=== PATIENT | male | born 1970 | race Hispanic/Latino ===

== ENCOUNTER 2023-06-03 04:54 | Emergency (ER) | payer SELFPAY ==
[2023-06-03] VITALS (8 sets, daily range): BP systolic 136–178; BP diastolic 85–94; PULSE 76–91; RESP 15–16; TEMP 36.8; O2SAT 96–100
--- NOTE | ~2023-06-03 | CT_ITS ---
Non-contrast CT scan of the Abdomen and Pelvis Clinical indication: Left back pain Technique: 2.5 mm axial scans were obtained through the abdomen and pelvis without intravenous or or al contrast. Dose reduction technique was used on this scan by utilizing automated exposure control a nd iterative reconstruction technique. The dose-length product (DLP) was 576.18 mGy-cm. Findings: Images through the lung bases reveal no abnormalities. There is no evidence of renal or ureteral calculi. The kidneys and the ureters are nondilated. There is diffuse fatty infiltration of the liver. The spleen, pancreas, gallbladder, and adrenals geovanna ear normal. There is no aortic aneurysm. There is no evidence of bowel obstruction. Images through the pelvis were performed. There is no evidence of ascites or lymphadenopathy. Urinary bladder unremarkable. No pelvic mass seen. Impression: No acute abnormality. Diffuse fatty infiltration of liver. Reviewed, dictated and finalized at [facility]. [employer] Impression: No acute abnormality. Diffuse fatty infiltration of liver.
[2023-06-03 05:56] LABS: Appearance Urine Clear (Clear); Bacteria Urine None Seen /hpf; Bilirubin Urine Negative (Negative); Blood Urine 2+ (Negative); Color Urine Yellow (Yellow); Glucose Urine UA Negative (Negative); Ketones Urine Negative (Negative); Leukocyte Esterase Ur Negative LEU/UL (Negative); Nitrate Urine Negative (Negative); Non Pathogenic Casts 0-2; Protein Urine Negative (Negative); RBC Urine 21-50 /hpf (0-2); Squamous Epithelial Cell Urine None seen /hpf (Few); Urobilinogen Urine 0.2 mg/dL (<2.0); WBC Urine 0-5 /hpf; pH Urine 6.5 (5.0-9.0)
[2023-06-03 06:21] LABS: Add Urine Microscopic? YES
[2023-06-03 07:03] LABS: Basophils Absolute Auto 0.1 K/mm3 (0.0-0.1); Basophils Percent Auto 0.7 % (0.2-1.2); Eosinophils Absolute Auto 0.2 K/mm3 (0-0.3); Eosinophils Percent Auto 3.1 % (0-4.4); Hematocrit 46.8 % (42.0-52.0); Hemoglobin 16.2 g/dL (14.0-18.0); Immature Granulocyte Absolute 0.03 K/mm3 (0.00-0.031); Immature Granulocyte Percent A 0.4 % (0-0.5); Lymphocytes Absolute Auto 1.68 K/mm3 (0.9-3.2); Lymphocytes Percent Auto 24.7 % (18.3-44.2); Mean Corpuscular HGB Conc 34.6 g/dl (32-36); Mean Corpuscular Hemoglobin 30.5 pg (26-34); Mean Corpuscular Volume 88.1 fl (80-100); Monocytes Absolute Auto 0.6 K/mm3 (0.1-0.6); Monocytes Percent Auto 8.7 % (2.6-8.5); Neutrophils Absolute Auto 4.2 K/mm3 (1.3-6.7); Neutrophils Percent Auto 62.4 % (45.5-73.1); Platelet Count Result 180 k/mm3 (150-375); Red Blood Count 5.31 M/mm3 (4.6-6.20); Red Cell Distribution Width 12.8 % (11.5-14.5); White Blood Count 6.8 K/mm3 (4.5-10.0)
[2023-06-03 07:07] LABS: Alanine Aminotransferase 68 U/L (6-50); Albumin Level 4.5 g/dL (3.5-5.1); Alkaline Phosphatase 72 U/L (38-126); Anion Gap 7 mmol/L (8-16); Aspartate Amino Transferase 42 U/L (17-59); Bilirubin,Total 0.9 mg/dL (0.2-1.3); Blood Urea Nitrogen 18 mg/dL (9-20); Calcium 9.9 mg/dL (8.4-10.2); Carbon Dioxide 26 mmol/L (22-30); Chloride 105 mmol/L (98-107); Estimated CRCL calculation 101 ml/min; Estimated Glomerular Filt Rate > 60; Glucose 111 mg/dL (65-110); Potassium 3.9 mmol/L (3.4-5.0); Sodium 138 mmol/L (137-145)
--- NOTE | 2023-06-03 07:31 | ED.ABDPAIN ---
HPI - Abdominal Pain General Chief Complaint: Abdominal Pain Stated Complaint: back pain Time Seen by Provider: 06/03/23 05:08 History of Present Illness HPI narrative: 53-year-old male presenting to the emergency department for evaluation of acute onset of left-sided flank pain that started while he was sleeping. Patient initially thought he was dreaming but was awoken by the pain. Patient tried to walk off the pain but states this did not help. Patient reports the pain at [place] approximately 9/10. Patient did have associated nausea. Upon arrival to the emergency department patient states the pain began to spontaneously improve. Patient states his pain is only a 1 at this time and patient declined any medications for pain control at time of evaluation. Patient denies any hematuria denies any prior history of kidney stones. Related Data Allergies Allergy/AdvReac Type Severity Reaction Status Date / Time No Known Allergies Allergy Verified 06/03/23 04:58 Review of Systems Review of Systems: All systems reviewed & are unremarkable except as noted in HPI and below Exam Narrative: APPEARANCE: Well appearing, no pain, no distress, well-nourished. HEAD: normocephalic, atraumatic. EYES: PERRLA/EOMI, conjunctivae clear. NOSE: Normal no drainage EARS:TMS clear with good light reflex. THROAT: Pharynx clear, no exudate. NECK: Supple. No adenopathy, no masses. RESPIRATORY: Airway patent, respirations nonlabored. Clear to auscultation bilaterally, no rales, rhonchi, wheezing. CARDIOVASCULAR: Regular rate and rhythm without murmurs rubs or gallops. ABDOMINAL: Soft, nontender, nondistended, normal bowel sounds MUSCULOSKELETAL: Moves all extremities. Strength/ROM intact, No edema, No calf tenderness. NEURO: Alert. Cranial nerves II through XII intact. Grossly intact SKIN: Warm, dry. Normal Color Course Course Emergency Course: 53-year-old male presenting to the emergency department for evaluation of left flank pain but that has improved since arrival to the emergency department. Patient is afebrile with no leukocytosis and a stable hemoglobin 16.2. No significant abnormalities on the patient's CMP UA did show hematuria but no underlying evidence of infection. CT scan without contrast was ordered to evaluate for ureteral calculi and CT scan was negative. On reexamination patient states he is still pain free. Do suspect a passed ureteral calculi. Patient did urinate prior to the CT scan and pain was improved before the CT scan. Vital Signs Vital signs: Vital Signs Temperature 98.2 F 06/03/23 04:59 Pulse Rate 91 06/03/23 04:59 Respiratory Rate 16 06/03/23 04:59 Blood Pressure 178/91 H 06/03/23 04:59 Pulse Oximetry 99 06/03/23 04:59 Oxygen Delivery Room Air 06/03/23 04:59 Temperature 98.2 F 06/03/23 04:59 Pulse Rate 84 06/03/23 07:46 Respiratory Rate 16 06/03/23 07:46 Blood Pressure 142/88 H 06/03/23 07:46 Pulse Oximetry 98 06/03/23 07:46 Oxygen Delivery Room Air 06/03/23 04:59 MDM - Abdominal Pain Differential Diagnosis Differential diagnosis: Likely abdominal pain, acute appendicitis, calculus of kidney, constipation, diverticulitis, gastroenteritis, pancreatitis and small bowel obstruction Lab Data 06/03/23 06:46 06/03/23 06:46 Labs: Lab Results 06/03/23 06/03/23 Range/Units 05:25 06:46 WBC 6.8 (4.5-10.0) K/mm3 RBC 5.31 (4.6-6.20) M/mm3 Hgb 16.2 (14.0-18.0) g/dL Hct 46.8 (42.0-52.0) % MCV 88.1 (80-100) fl MCH 30.5 (26-34) pg MCHC 34.6 (32-36) g/dl RDW 12.8 (11.5-14.5) % Plt Count 180 (150-375) k/mm3 MPV 11.0 H (7.4-10.4) fl Immature Gran % (Auto) 0.4 (0-0.5) % Neut % (Auto) 62.4 (45.5-73.1) % Lymph % (Auto) 24.7 (18.3-44.2) % [place] % (Auto) 8.7 H (2.6-8.5) % Eos % (Auto) 3.1 (0-4.4) % Baso % (Auto) 0.7 (0.2-1.2) % Lymph # (Auto) 1.68 (0.9-3.2) K/mm3 Deuel # (Auto)
== END 2023-06-03 07:51 | disposition home or self-care (01) ==
PROVIDERS: Emergency Provider Emergency Medicine
DX: R31.9 Hematuria, unspecified (principal); R10.9 Unspecified abdominal pain
CPT/HCPCS: 36415; 74176; 80053; 81001; 85025; 99284